=== PATIENT | male | born 1995 | race Caucasian/White ===

== ENCOUNTER 2017-01-24 00:12 | Emergency (ER) | payer OTHER ==
[~2017-01-24] VITALS: Ht 177.8 cm; Wt 81.6 kg
[~2017-01-24 00:12] MED LIST: ACET325T51 PO; ADAL40KI SQ; ANTI IV; GUAI120013 PO; HYDR-4003 PO; ONDA8TAB10 PO; OXYM30SP18 NS; SULF1TAB7 PO; [UNRECOGNIZED DRUG - CODE] IV
[2017-01-24 00:15] VITALS: BP 147/83; PULSE 88; RESP 14; O2SAT 100
--- NOTE | 2017-01-24 00:23 | ED.REPORT ---
HPI-General Illness Date of Service Jan 24, 2017 ED Provider: Kasi Haider MD Patient is a 21 year old male with a history of Hemophilia A and juvenile rheumatoid arthritis who presents to the ED with a bruise to his left forearm that developed 3 days ago. The patient states that noticed the bruise when driving to work and that he does not know how the injury occurred. The bruise has increased in area since onset, with increased size since yesterday. The bruise has changed color and become increasingly painful. He is now unable to straighten his arm. The patient took 2x large doses of factor VIII (today and yesterday), a total of 14,000 units. He has his factor VIII at home to use as needed. Patient denies numbness or tingling in his fingertips. Patient has not noticed any other sources of bleeding. The patient consulted his assembly person, who told him to present to the ED. Nursing Notes Stated Complaint: BRUISING L ARM Chief Complaint: General Complaint Nursing Notes Reviewed: Yes Allergies: Coded Allergies: amoxicillin (Verified Allergy, Intermediate, hives, 01/24/17) clavulanic acid (Verified Allergy, Intermediate, hives, 01/24/17) hydromorphone (Verified Allergy, Mild, rash, 01/24/17) Scheduled Guaifenesin (Mucinex) 1,200 Mg Tbmp.12hr 1,200 MG PO BID Oxymetazoline HCl (Nasal [place] Sinus) 30 Ml [place] 30 ML NS DIRECTED Instill 2-3 sprays into each nostril twice daily for 3 days Sulfamethoxazole/Trimeth 800-160 mg (Bactrim DS) 1 Each Tablet 1 TABLET PO BID Scheduled PRN Acetaminophen (Acetaminophen) 325 Mg Tablet 500 MG PO Q4H PRN PRN For Pain Adalimumab (Humira) 40 Mg/0.8 Ml Kit 40 MG SQ PRN twice a month Antihemoph.fviii Plas/Alb Free (Advate) 2,000 Unit Vial 2,000 UNIT IV PRN bleeding Antihemoph.fviii Plas/Alb Free (Advate) 4,000 Unit Vial 4,000 UNIT IV PRN bleeding Hydrocodone-Acetaminophen 5-325 mg (Hydrocodone-Acetaminophen 5-325 mg) 1 Each Tablet 1-2 TABLET PO Q4H PRN PRN For Pain Ondansetron ODT (Ondansetron ODT) 8 Mg Tab.rapdis 8 MG PO QID PRN PRN For Nausea General Time Seen by MD: 00:23 Chief Complaint Other (bruise left arm) Hx Obtained From: Patient Arrived By: Walk-in Sudden in Onset?: No Onset Occurred: 3 days ago Symptom Duration: Since onset Location: : Arm left Quality: Painful Severity: Current: Moderate Severity: Maximum: Moderate Recent Healthcare: No recent doctor visit, No recent hospitalization Similar Sx Previous: Yes Past Medical History Past Medical History Notes: PCP: Assigned but does not see Hemophila: in [place], Dr. Yuliana Alvarado & Dr. Le Diaz Arthritis: in [place] ENT: Dr. Vora, Dr. Pal () Opthamology: Dr. 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 Physical Exam Vital Signs Vital Signs Date Time Temp Pulse Resp B/P Pulse Ox O2 Delivery O2 Flow Rate FiO2 01/24/17 00:50 36.1 88 14 147/83 100 Room Air 01/24/17 00:15 36.1 88 14 147/83 100 Room Air Initial VS: Reviewed Head / Eyes: Atraumatic, Normocephalic, PERRL ENT: Conjunctiva normal, No scleral icterus Neck: Supple, Full range of motion Abdomen / GI: Soft, Non-tender Skin: Warm, Dry, No cyanosis Neurologic: Alert, Oriented, Nonfocal Psychiatric: Mood/affect normal, Behavior normal, Normal thought content General/Constitutional: Awake, Alert, No acute distress Respiratory / Chest: No respiratory distress, No stridor Cardiovascular: Heart rate NL, Cap refill not delayed Upper Extremities Upper Extremity / MS: Neurologic intact, Vascular intact, Tendon function NL, No compartment syndrome non-tense hematoma to the flexor surface left forearm, no tension or reticular fullness. Re-Eval/Medical Decision Med Decision/Clinical Course 21-year-old hemophiliac referred in by an office nurse associated with his hematology practice. He has a bruise on his arm and is treated already with factor eight concentrated. It does not appear to be bleeding actively and there is no evidence of compartment syndrome. Discharged home in stable condition with a gentle compression wrap. Follow-up with PCP and with hematology. Return if worse. Source of Hx: Old records Time of Eval: 00:32 Re-Evaluation/Progress Note: The patient's exam was reassuring. He can take an additional dose of factor VIII once he returns home. Will wrap his arm. Patient understands and agrees with the plan to be discharged home. Discharge instructions and follow-up discussed. All questions were addressed. Return to the ED warnings given. Counseled Regarding: Diagnosis, Need for follow-up, When/why to return to ED Discharge & Departure Primary Impression: Bleeding Additional Impression: Hemophilia A Disposition: Home Discharge Condition All VS Reviewed: Yes Condition: Stable Patient Instructions: Hemophilia (ED) Additional Instructions: Where a gentle compression wrap on the lower arm. If this continues to enlarge at all, taken additional 4000 units of factor VIII Elevate when possible and maintain gentle pressure. Follow-up with your doctors. Symptoms of concern would be numbness, tingling, or any difficulties or circulation to the hand. You do not have any evidence of compartment syndrome at this time. If you need to return, be sure and bring some factor VIII with you. Referrals: Sg Antonio ND (PCP) Anna Attestation Portions of this note were transcribed by Shaista Neri. I, Dr. Haider personally performed the history, physical exam and medical decision-making; I reviewed and confirmed the accuracy of the information in the transcribed note. Signed by: Anna Tamez, 01/24/2017 0044 copies to: Sg Antonio ND, Christopher W MD Jan 24, 2017 00:23 Shaista Neri Jan 24, 2017 00:31
[2017-01-24 00:50] VITALS: BP 147/83; PULSE 88; RESP 14; O2SAT 100
== END 2017-01-24 00:50 | disposition home or self-care (01) ==
LOC: SED 00:12
DX: D66 Hereditary factor VIII deficiency (principal); X58.XXXA Exposure to other specified factors, initial encounter; Y93.89 Activity, other specified; Y92.9 Unspecified place or not applicable; Y99.8 Other external cause status; Z88.1 Allergy status to other antibiotic agents; Z88.5 Allergy status to narcotic agent

== ENCOUNTER 2017-06-01 10:23 | Emergency (ER) | payer OTHER ==
[~2017-06-01] VITALS: Ht 177.8 cm; Wt 81.8 kg
[~2017-06-01 10:23] MED LIST changes: -OXYM30SP18 NS; +OXYM30SP19 NS
[2017-06-01 10:24] VITALS: BP 137/61; PULSE 63; RESP 16; O2SAT 97
--- NOTE | 2017-06-01 10:37 | ED.REPORT ---
HPI-Allergic Reaction Date of Service Jun 01, 2017 ED Provider: Luis Alston DO Patient is a 21 year old male with a hx of hemophilia who presents to the ED s/ p obtaining a bee sting to the throat at 1000 this morning. He reports feeling a lump in his throat. He denies SOB, voice changes, hives, or any other symptoms. He used a topical bee sting agent on the area. He does not have a known hx of bee sting allergies. Nursing Notes Stated Complaint: BEE STING TO THROAT/SWELLING Chief Complaint: Allergic Reaction Nursing Notes Reviewed: Yes Allergies: Coded Allergies: amoxicillin (Verified Allergy, Intermediate, hives, 01/24/17) clavulanic acid (Verified Allergy, Intermediate, hives, 01/24/17) hydromorphone (Verified Allergy, Mild, rash, 01/24/17) Scheduled Guaifenesin (Mucinex) 1,200 Mg Tbmp.12hr 1,200 MG PO BID Oxymetazoline HCl (Nasal [place] Sinus) 30 Ml [place] 30 ML NS DIRECTED Instill 2-3 sprays into each nostril twice daily for 3 days Sulfamethoxazole/Trimeth 800-160 mg (Bactrim DS) 1 Each Tablet 1 TABLET PO BID Scheduled PRN Acetaminophen (Acetaminophen) 325 Mg Tablet 500 MG PO Q4H PRN PRN For Pain Adalimumab (Humira) 40 Mg/0.8 Ml Kit 40 MG SQ PRN twice a month Antihemoph.fviii Plas/Alb Free (Advate) 2,000 Unit Vial 2,000 UNIT IV PRN bleeding Antihemoph.fviii Plas/Alb Free (Advate) 4,000 Unit Vial 4,000 UNIT IV PRN bleeding Hydrocodone-Acetaminophen 5-325 mg (Hydrocodone-Acetaminophen 5-325 mg) 1 Each Tablet 1-2 TABLET PO Q4H PRN PRN For Pain Ondansetron ODT (Ondansetron ODT) 8 Mg Tab.rapdis 8 MG PO QID PRN PRN For Nausea General Time Seen by MD: 10:34 Chief Complaint Insect bite/sting Hx Obtained From: Patient, Other family... Arrived By: Walk-in Onset Occurred: Just prior to arrival Symptom Duration: Since onset Immunizations: Tetanus up to date Past Medical History Past Medical History Notes: PCP: Assigned but does not see Hemophila: in [place], Dr. Yuliana Alvarado & Dr. Le Diaz Arthritis: in [place] ENT: Dr. Vora, Dr. Pal () Opthamology: Dr. 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 Physical Exam Initial Vital Signs Vital Signs (First) Date Time Temp Pulse Resp B/P Pulse Ox O2 Delivery O2 Flow Rate FiO2 06/01/17 10:24 36.8 63 16 137/61 97 Room Air Initial VS: Reviewed, Vital signs normal Abdomen / GI: Soft, Non-tender Neurologic: Alert, Oriented, Nonfocal Psychiatric: Mood/affect normal, Behavior normal, Normal thought content General/Constitutional: Awake, Alert, No acute distress Respiratory / Chest: Atraumatic, Breath sounds NL, Breath sounds = bilat, No respiratory distress, No wheezing, No stridor no stridor in lungs or neck Cardiovascular: Heart rate NL, Regular rhythm, Heart sounds NL Skin: Warm, Dry Rash / Lesion Notes: erythema surrounding sting site at suprasternal notch Head / Eyes: Atraumatic, Normocephalic, No periorbital redness, No periorbital swelling ENT: Atraumatic, Airway patent, Mucous membranes moist, Pharynx NL, No facial swelling Re-Eval/Medical Decision Med Decision/Clinical Course Bee sting without systemic symptoms or signs of anaphylaxis. Patient was observed and will be discharged. Re-Evaluation/Progress #1: Time of Eval: 10:58 Re-Evaluation/Progress Note: Discussed plan for observation and discharge if stable. Patient understands and agrees with plan. All questions addressed at this time. Re-Evaluation/Progress #2: Time of Eval: 11:35 Patient Status: Condition improved Re-Evaluation/Progress Note: Almost complete resolution of the rash. Discussed plan for discharge. Patient understands and agrees with plan. All questions addressed at this time. Counseled Regarding: Diagnosis, Need for follow-up, When/why to return to ED Discharge & Departure Primary Impression: Bee sting Encounter type: initial encounter Injury intent: accidental or unintentional Qualified Code: T63.441A - Toxic effect of venom of bees, accidental (unintentional), initial encounter Disposition: Home Discharge Condition All VS Reviewed: Yes Condition: Stable Patient Instructions: Insect Bite or Sting (ED) Additional Instructions: Thank you for coming to the emergency department. Follow up with your primary doctor if you symptoms do not resolve. Take Benadryl and loratidine as needed. Return to the emergency department for new or worsening symptoms. Referrals: Sg Antonio ND (PCP) Anna Attestation Portions of this note were transcribed by Shantelle Nava. I, Dr. Alston personally performed the history, physical exam and medical decision-making; I reviewed and confirmed the accuracy of the information in the transcribed note. Signed by: Anna Levine, 06/01/17 copies to: Sg Antonio ND, Timothy S DO Jun 01, 2017 10:37 SHANTELLE NAVA Jun 01, 2017 10:47
[2017-06-01] MEDS ORDERED: diphenhydrAMINE 50 mg Capsule PO ONE (10:55)
[2017-06-01] MEDS ORDERED: diphenhydrAMINE 25 mg Capsule PO ONE (11:00)
[2017-06-01 11:51] VITALS: BP 119/64; PULSE 72; RESP 16; O2SAT 100
== END 2017-06-01 11:52 | disposition home or self-care (01) ==
LOC: SED 10:23
DX: T63.441A Toxic effect of venom of bees, accidental (unintentional), initial encounter (principal); R22.0 Localized swelling, mass and lump, head; X58.XXXA Exposure to other specified factors, initial encounter; Y93.9 Activity, unspecified; Y92.9 Unspecified place or not applicable; Y99.9 Unspecified external cause status; Z88.1 Allergy status to other antibiotic agents; Z88.5 Allergy status to narcotic agent